=== PATIENT | female | born 1990 | race Caucasian/White ===

== ENCOUNTER 2016-11-17 09:45 | Emergency (ER) ==
--- NOTE | 2016-11-17 10:12 | PROVIDER DOCUMENTATION ---
HPI-General Adult - General Source: patient - History of Present Illness -Gen Adult Nature of Presenting Problems: patient is a 26 y/o F that presents to the Er with dizziness x 6 months. Has been seen multiple times in the past for this at different ERs. patient reports some abdominal pain. She also reports hairy tongue. She has history of fungal infection Location of Pain/Injury: reports: abdomen Pain Radiation: reports: no radiation Quality of Pain: reports: none Severity: reports: mild Onset/Duration: reports: gradual, other (6 months) Timing: reports: still present, constant Context/Activities at Onset: reports: none Modifying Factors: improves with: nothing Associated Symptoms: reports: diarrhea, EENT symptoms. denies: back/neck pain, fever/chills, genitourinary problems, nausea, seizure, vomiting Similar Symptoms Previously?: Yes Recently seen or treated by another doctor?: Yes <Ramos Justin - Last Filed: 11/17/16 10:42> - History of Present Illness -Gen Adult Nature of Presenting Problems: hx of fungal infectionin the right ear, that has been treated and resolved by ENT <Gudelia Salazar - Last Filed: 11/17/16 11:34> - General Chief Complaint: General Adult Stated Complaint: SORE THROAT/COLD SX Time Seen by Provider: 11/17/16 10:02 Allergies/Adverse Reactions: Patient Allergies Allergy/AdvReac Type Severity Reaction Status Date / Time tramadol Allergy Intermediate VOMITING Verified 08/21/16 14:33 Review of Systems - Adult - REVIEW OF SYSTEMS - ADULT Constitutional: denies: chills, fever Eyes: denies: decreased vision, blurred vision, double vision Ears, Nose, Mouth & Throat: reports: other (hairy tongue). denies: ear pain, sinus problem, throat pain, throat swelling Cardiovascular: denies: chest pain, palpitations, syncope Respiratory: reports: no symptoms reported Gastrointestinal: reports: abdominal pain. denies: diarrhea, nausea, vomiting Genitourinary: reports: no symptoms reported Musculoskeletal: denies: back pain, joint pain, neck pain Integumentary: reports: no symptoms reported Neurological: reports: dizziness/vertigo. denies: paresthesia Psychiatric: reports: no symptoms reported Endocrine: reports: no symptoms reported Hematologic/Lymphatic: reports: no symptoms reported Allergic/Immunologic: reports: no symptoms reported All Other Systems: Reviewed and Negative <Ramos Justin - Last Filed: 11/17/16 10:42> Past History - Adult - PAST MEDICAL HISTORY-ADULT Review of Records: reports: Old Records Reviewed, Nursing Assessment Review, Medications Reviewed Respiratory: reports: asthma Obstetrical/Gynecological: reports: other (PCOS) Neurological: reports: other (vertigo) - PRIOR SURGERIES/PROCEDURES Surgical/Procedure History: reports: orthopedic (extremity) - IMMUNIZATION STATUS Childhood Immunizations: See Nurse Assessment Flu Vaccine: See Nurse Assessment - FAMILY HISTORY Family History: reviewed, not pertinent - SOCIAL HISTORY Smoking: cigarettes, less than 1 pack/day Living Situation: family <Ramos Justin - Last Filed: 11/17/16 10:42> Physical Exam-General - PHYSICAL EXAM-ADULT Initial Vital Signs Reviewed: Yes - CONSTITUTIONAL General Appearance: alert, no apparent distress - EYES Eyes: PERRL/EOMI, pink conjunctivae - HEAD, EARS, NOSE, MOUTH & THROAT HENMT: normocephalic/atraumatic, moist mucous membranes, TMs normal, other ( hairy tongue). negative: angioedema - NECK Neck: non-tender, full range of motion, normal inspection. negative: lymphadenopathy - RESPIRATORY Respiratory: lungs clear, normal breath sounds, no respiratory distress, no accessory muscle use - CARDIOVASCULAR Cardiovascular: regular rate, rhythm, no edema, no murmur - GASTROINTESTINAL (ABDOMEN) Abdominal Exam: normal bowel sounds, non tender, soft, no organomegaly, no pulsatile mass - MUSCULOSKELETAL Back Exam: no CVA tenderness, no vertebral tenderness Extremity: normal range of motion, normal inspection, no pedal edema - SKIN Integumentary: normal color, warm/dry - NEUROLOGIC Neurologic: grossly normal, no motor/sensory deficits - PSYCHIATRIC Psych/Mental Status: normal mood/affect, normal thought content, normal thought process, oriented x 3 <Ramos Justin - Last Filed: 11/17/16 10:42> Progress - PLAN OF CARE/RESULTS Progress/Plan/Lab Results: plan of care-labs, meds <Ramos Justin - Last Filed: 11/17/16 10:42> - CT/MRI 1 CT Study: Head Impression: Normal (negative per radiology) <Gudelia Salazar - Last Filed: 11/17/16 11:34> Departure <Ramos Justin - Last Filed: 11/17/16 10:42> - Departure Time of Disposition Order: 11:30 Certified Medical Emergency: Emergent <Gudelia Salazar - Last Filed: 11/17/16 11:34> - Departure DIAGNOSIS: Dizziness, Brown hairy tongue Disposition: HOME 01 Condition: Stable Additional Instructions: Follow up with Dr. English, neurologist. Get a tongue scraper, practice good mouth hygiene ED Follow Up Instructions: You have been treated by a care provider in the Emergency Department. These instructions are being provided to you so you can have an understanding of how to care for yourself upon discharge. Upon discharge from the Emergency Department, you are responsible for making arrangements for follow-up care by a physician of your choice. Take all prescribed medications as directed. Return to the Emergency Department immediately for any new or worsening symptoms. You may call the Physician Referral phone number at [phone] to obtain a list of Physicians who are taking new patients. Prescriptions: Meclizine [Antivert] 12.5 mg PO TID #30 tablet Ondansetron Odt [Zofran 8Mg Odt] 8 mg PO Q8H PRN PRN #20 tablet PRN Reason: Nausea Referrals: HELEN ASHLEY CRNP [Primary Care Provider] - Bib English III, MD [STAFF PHYSICIAN] - Attestation - Scribe Verification/Attestation Scribe:: Ramos Justin Acting as Scribe for:: Gudelia Salazar Scribe documention review:: This chart was documented by a scribe and accurately reflects the service the provider performed and the decisions made by the provider. - Physician/ Mid-level Attestation Patient care was provided by Mid-level provider (TECHNICAL SUPPORT ASSISTANT/PA):: Yes Mid-level provider:: Gudelia Salazar Mid-level documentation review:: The Mid-level provider documentation, treatment plan and medical decision making was reviewed by the physician who agrees with all treatment and medical decision making by the [facility]. <Ramos Justin - Last Filed: 11/17/16 10:42> Physician Attestation
[2016-11-17] MEDS ORDERED: ZOFRAN ODT PO ONE (10:14)
[2016-11-17] MEDS ORDERED: ANTIVERT PO ONE (10:14)
[2016-11-17 10:27] LABS: MANUAL DIFF NEEDED? NO
[2016-11-17 10:29] LABS: URINE SOURCE CLEAN CATCH
[2016-11-17 10:32] LABS: BASO% 0.3 % (0.0-0.8); EOS% 3.1 % (0.0-10.0); HEMATOCRIT 47.9 % (37.0-47.0); HEMOGLOBIN 15.7 g/dL (12.0-16.0); IMM GRAN# 0.02 X1000 (0.0-0.04); IMM GRAN% 0.2 % (0.0-0.5); LYMPH# 3.89 X1000 (1.2-3.4); LYMPH% 29.7 % (20.5-51.1); MCH 30.1 PG (27-31); MCHC 32.8 g/dL (33-37); MCV 91.8 FL (81-99); MONO# 0.82 X1000 (0.11-0.59); MONO% 6.3 % (1.7-9.3); MPV 11.7 FL (7.4-10.4); NEUT% 60.4 % (42.2-75.2); PLT 189 X1000 (130-400); RBC 5.22 XMIL (4.2-5.4)
[2016-11-17 10:34] LABS: BILIRUBIN URINE NEGATIVE (NEGATIVE); BLOOD URINE NEGATIVE (NEGATIVE); CLARITY CLEAR (CLEAR); COLOR YELLOW; GLUCOSE URINE NEGATIVE (NEGATIVE); LEUKOCYTES URINE NEGATIVE (NEGATIVE); NITRITE URINE NEGATIVE (NEGATIVE); PROTEIN URINE NEGATIVE (NEGATIVE); UROBILINOGEN URINE NORMAL
[2016-11-17 10:42] LABS: UR AMPHETAMINES QUAL NONE DETECTED (NONE DETECT); UR BARBITUATES QUAL NONE DETECTED (NONE DETECT); UR BENZODIAZEPIN QUAL NONE DETECTED (NONE DETECT); UR CANNABINOIDS QUAL NONE DETECTED (NONE DETECT); UR COCAINE QUAL NONE DETECTED (NONE DETECT); UR MDMA QUAL NONE DETECTED (NONE DETECT); UR METHADONE QUAL NONE DETECTED (NONE DETECT); UR METHAMPHETAMINE QUAL NONE DETECTED (NONE DETECT); UR OPIATES QUAL NONE DETECTED (NONE DETECT); UR OXYCODONE QUAL NONE DETECTED (NONE DETECT); UR PCP QUAL NONE DETECTED (NONE DETECT); UR TCA QUAL NONE DETECTED (NONE DETECT)
[2016-11-17 10:55] LABS: AGAP 9; ALBUMIN 4.5 g/dL (3.5-5.0); ALKALINE PHOSPHATASE 100 U/L (32-104); BUN 8 mg/dL (8-22); CALCIUM 9.5 mg/dL (8.8-10.2); CHLORIDE 103 mmol/L (98-107); COSMO 278; GOT 12 U/L (10-30); GPT 10 U/L (10-36); POTASSIUM 3.2 mmol/L (3.5-5.1); SODIUM 140 mmol/L (136-145); TCO2 28 mmol/L (25-35)
[2016-11-17 11:45] VITALS: BP 127/80
--- NOTE | 2016-11-17 13:08 | Diag Imaging Result Document ---
PROCEDURE NAME: HEAD W/O CONTRAST - 11/17/2016 CT BRAIN WITHOUT. TECHNIQUE: Dose reduction protocol. FINDINGS: No parenchymal hemorrhage. No epidural or subdural hematoma. No subarachnoid hemorrhage. No mass identified on this noncontrasted exam. No hydrocephalus. No sinus opacification. There is a small amount of mucus in the ethmoid sinuses. IMPRESSION: No hemorrhage. Negative brain CT without contrast. A preliminary report was given at 11:23 a.m.
== END 2016-11-17 11:49 | disposition home or self-care (01) ==
LOC: P.ED 09:45
DX: R42 Dizziness and giddiness (principal); K14.8 Other diseases of tongue; R10.9 Unspecified abdominal pain; J02.9 Acute pharyngitis, unspecified; F17.210 Nicotine dependence, cigarettes, uncomplicated
CPT/HCPCS: 70450; 80053; 81003; 81025; 85025